=== PATIENT | female | born 1955 | race Caucasian/White ===

== ENCOUNTER 2024-03-07 17:27 | Emergency (ER) | payer MEDICARE ==
[2024-03-07] MEDS: Sodium Chloride 0.9% 1,000 ML IV ONE ×2 (18:51→20:34)
[2024-03-07 18:55] LABS: BASOPHILS ABSOLUTE AUTO 0.1 K/mm3 (0.0-0.2); BASOPHILS PERCENT AUTO 0.8 % (0.0-1.0); EOSINOPHILS ABSOLUTE AUTO 0.2 K/mm3 (0.0-0.4); HEMATOCRIT 46.1 % (37.0-47.0); HEMOGLOBIN 15.6 gm/dl (12.0-16.0); IMMATURE GRAN ABSOLUTE AUTO 0.01 K/mm3 (0.00-0.05); IMMATURE GRAN PERCENT AUTO 0.2 % (0.0-0.4); LYMPHOCYTES ABSOLUTE AUTO 2.9 K/mm3 (1.0-4.8); LYMPHOCYTES PERCENT AUTO 45.4 % (24.0-44.0); MEAN CORPUSCULAR HEMOGLOBIN 33.7 pg (28.0-32.0); MEAN CORPUSCULAR HGB CONC 33.8 g/dl (32.0-36.0); MEAN CORPUSCULAR VOLUME 99.6 fl (83.0-99.0); MEAN PLATELET VOLUME 10.4 fl (9.4-12.3); MONOCYTES ABSOLUTE AUTO 0.5 K/mm3 (0.0-0.8); MONOCYTES PERCENT AUTO 7.1 % (0.0-8.0); NEUTROPHILS ABSOLUTE AUTO 2.8 K/mm3 (1.8-7.7); NEUTROPHILS PERCENT AUTO 43.5 % (41.0-71.0); PLATELET COUNT,PLT 183 K/mm3 (150-400); RED BLOOD CELL COUNT 4.63 M/mm3 (4.10-5.30); WHITE BLOOD CELL COUNT,WBC 6.35 K/mm3 (3.9-11.3)
[2024-03-07 19:39] LABS: A/G RATIO 1.2 (1-2); ANION GAP 19.4 (5-15); BILIRUBIN TOTAL 0.5 mg/dL (0.2-1.0); BUN/CREATININE RATIO 21.3 (14-18); CALCIUM 8.8 mg/dL (8.5-10.1); CREATININE 0.8 mg/dL (0.55-1.02); EST CRCL DRUG DOSING (CG) 57.31 mL/min; ETHANOL BLOOD MEDICAL 0.25 gm% (0.00); MAGNESIUM 1.6 mg/dL (1.8-2.4); POTASSIUM,K 4.4 mEq/L (3.5-5.1); PROTEIN TOTAL,TP 7.3 g/dl (6.4-8.2)
[2024-03-07] MEDS: Magnesium Oxide 400 MG Tab PO ONE (20:34)
== END 2024-03-07 23:12 | disposition home or self-care (01) ==
LOC: JD.ED 17:27
DX: F10.920 Alcohol use, unspecified with intoxication, uncomplicated (principal)
CPT/HCPCS: 36415; 80053; 80307; 83735; 85025; 96360; 96361; 99284; A9270; J7030; 99282

== ENCOUNTER 2025-03-15 22:51 | Inpatient (IN) | payer MEDICAID ==
[2025-03-15 23:37] LABS: MEAN PLATELET VOLUME 10.5 fl (9.4-12.3); NRBC ABSOLUTE 0.00 (0.00-0.02); NRBC PERCENT 0.0 % (0.0-0.2); PLATELET COUNT,PLT 266 K/mm3 (150-400); RED BLOOD CELL COUNT 5.50 M/mm3 (4.10-5.30); WHITE BLOOD CELL COUNT,WBC 13.21 K/mm3 (3.9-11.3)
[2025-03-15 23:44] LABS: INR 1.04
[2025-03-15] MEDS: Ondansetron 4 MG/2 ML SDV IVPUSH ONE (23:48)
[2025-03-15] MEDS ORDERED: Sodium Chloride 0.9% 10 ML Syringe FLUSH PRN (23:53)
[2025-03-15 23:58] LABS: A/G RATIO 1.0 (1-2); ALANINE AMINOTRANSFERASE,ALT 22.0 U/L (14-59); ASPARTATE AMNIOTRANSFERASE,AST 19.0 U/L (15-37); BILIRUBIN TOTAL 0.9 mg/dL (0.2-1.0); BLOOD UREA NITROGEN,BUN 23.0 mg/dL (7-18); CARBON DIOXIDE,CO2 21.0 mEq/L (21-32); CHLORIDE,CL 100.0 mEq/L (98-107); CREATININE 1.3 mg/dL (0.55-1.02); EST CRCL DRUG DOSING (CG) 34.77 mL/min; ESTIMATED GFR 44.0 mL/min (>60); GLUCOSE RANDOM 183.0 mg/dL (70-99); POTASSIUM,K 4.3 mEq/L (3.5-5.1); PROTEIN TOTAL,TP 7.3 g/dl (6.4-8.2); SODIUM,NA 134.0 mEq/L (136-145); TROPONIN I HIGH SENSITIVITY 10.0 pg/mL (<=51)
[2025-03-16 00:03] LABS: LACTIC ACID 2.4 mmol/L (0.4-2.0)
[2025-03-16] MEDS: Iopamidol 755 Mg/ML 100 ML Bottle IVPUSH ONE (00:24)
[2025-03-16] MEDS: Sodium Chloride 0.9% 10 ML Syringe FLUSH PRN (00:24)
[2025-03-16 00:34] LABS: BAND PERCENT MAN 0 % (0-10); BASOPHILS PERCENT MAN 0 (0.1-1.2); EOSINOPHILS PERCENT MAN 1 % (0.7-5.8); LYMPHOCYTES % ATYPICAL MANUAL 2 %; LYMPHOCYTES PERCENT MAN 13 % (20-40); MONOCYTES PERCENT MAN 6 % (2-10); PLATELET COUNT ESTIMATE ADEQUATE
[2025-03-16 03:08] LABS: APPEARANCE,URINE CLEAR (Clear); GLUCOSE,URINE NEGATIVE (Negative); OCCULT BLOOD,URINE NEGATIVE (Negative)
[2025-03-16] MEDS ORDERED: Sennosides/Docusate Sodium 50-8.6 MG Tab PO PRN (04:18)
[2025-03-16] MEDS: Heparin Sodium 5,000 Units/ML Vial SUBCUT SCH (04:45)
[2025-03-16] MEDS: Lactated Ringers 1,000 ML IV SCH (04:46)
[2025-03-16] MEDS: Ondansetron 4 MG/2 ML SDV IVPUSH PRN (05:07)
[2025-03-16 08:21] LABS: A/G RATIO 1.1 (1-2); ALANINE AMINOTRANSFERASE,ALT 20.0 U/L (14-59); ASPARTATE AMNIOTRANSFERASE,AST 25.0 U/L (15-37); BILIRUBIN TOTAL 0.9 mg/dL (0.2-1.0); BLOOD UREA NITROGEN,BUN 17.0 mg/dL (7-18); CARBON DIOXIDE,CO2 24.0 mEq/L (21-32); CHLORIDE,CL 102.0 mEq/L (98-107); CREATININE 1.0 mg/dL (0.55-1.02); EST CRCL DRUG DOSING (CG) 45.2 mL/min; ESTIMATED GFR 61.0 mL/min (>60); GLUCOSE RANDOM 99.0 mg/dL (70-99); POTASSIUM,K 4.6 mEq/L (3.5-5.1); PROTEIN TOTAL,TP 6.8 g/dl (6.4-8.2); SODIUM,NA 135.0 mEq/L (136-145)
[2025-03-16 08:35] LABS: BASOPHILS ABSOLUTE AUTO 0.0 K/mm3 (0.0-0.2); BASOPHILS PERCENT AUTO 0.5 % (0.0-1.0); EOSINOPHILS ABSOLUTE AUTO 0.1 K/mm3 (0.0-0.4); EOSINOPHILS PERCENT AUTO 1.9 % (0.0-6.0); IMMATURE GRAN ABSOLUTE AUTO 0.02 K/mm3 (0.00-0.05); IMMATURE GRAN PERCENT AUTO 0.3 % (0.0-0.4); LYMPHOCYTES ABSOLUTE AUTO 2.1 K/mm3 (1.0-4.8); LYMPHOCYTES PERCENT AUTO 33.1 % (24.0-44.0); MEAN PLATELET VOLUME 10.2 fl (9.4-12.3); MONOCYTES ABSOLUTE AUTO 0.7 K/mm3 (0.0-0.8); MONOCYTES PERCENT AUTO 11.5 % (0.0-8.0); NEUTROPHILS ABSOLUTE AUTO 3.3 K/mm3 (1.8-7.7); NEUTROPHILS PERCENT AUTO 52.7 % (41.0-71.0); NRBC ABSOLUTE 0.00 (0.00-0.02); NRBC PERCENT 0.0 % (0.0-0.2); RED BLOOD CELL COUNT 4.42 M/mm3 (4.10-5.30); WHITE BLOOD CELL COUNT,WBC 6.28 K/mm3 (3.9-11.3)
[2025-03-16 08:38] LABS: PLATELET COUNT,PLT 186 K/mm3 (150-400)
[2025-03-17 07:22] LABS: BASOPHILS ABSOLUTE AUTO 0.0 K/mm3 (0.0-0.2); BASOPHILS PERCENT AUTO 1.1 % (0.0-1.0); EOSINOPHILS ABSOLUTE AUTO 0.2 K/mm3 (0.0-0.4); EOSINOPHILS PERCENT AUTO 6.7 % (0.0-6.0); IMMATURE GRAN ABSOLUTE AUTO 0.01 K/mm3 (0.00-0.05); IMMATURE GRAN PERCENT AUTO 0.4 % (0.0-0.4); LYMPHOCYTES ABSOLUTE AUTO 1.3 K/mm3 (1.0-4.8); LYMPHOCYTES PERCENT AUTO 43.9 % (24.0-44.0); MEAN PLATELET VOLUME 10.3 fl (9.4-12.3); MONOCYTES ABSOLUTE AUTO 0.3 K/mm3 (0.0-0.8); MONOCYTES PERCENT AUTO 11.2 % (0.0-8.0); NEUTROPHILS ABSOLUTE AUTO 1.1 K/mm3 (1.8-7.7); NEUTROPHILS PERCENT AUTO 36.7 % (41.0-71.0); NRBC ABSOLUTE 0.00 (0.00-0.02); NRBC PERCENT 0.0 % (0.0-0.2); PLATELET COUNT,PLT 157 K/mm3 (150-400); RED BLOOD CELL COUNT 3.98 M/mm3 (4.10-5.30); WHITE BLOOD CELL COUNT,WBC 2.85 K/mm3 (3.9-11.3)
[2025-03-17 07:44] LABS: A/G RATIO 1.1 (1-2); ALANINE AMINOTRANSFERASE,ALT 19.0 U/L (14-59); ASPARTATE AMNIOTRANSFERASE,AST 16.0 U/L (15-37); BILIRUBIN TOTAL 0.7 mg/dL (0.2-1.0); BLOOD UREA NITROGEN,BUN 10.0 mg/dL (7-18); CARBON DIOXIDE,CO2 26.0 mEq/L (21-32); CHLORIDE,CL 108.0 mEq/L (98-107); CREATININE 1.1 mg/dL (0.55-1.02); EST CRCL DRUG DOSING (CG) 41.09 mL/min; ESTIMATED GFR 54.0 mL/min (>60); GLUCOSE RANDOM 94.0 mg/dL (70-99); POTASSIUM,K 4.3 mEq/L (3.5-5.1); PROTEIN TOTAL,TP 5.8 g/dl (6.4-8.2); SODIUM,NA 142.0 mEq/L (136-145)
[2025-03-17] MEDS: Magnesium Sulfate 2 GM/50 mL 2 GM in Premix Bag 1 BAG IV ONE (08:12)
== END 2025-03-17 14:25 | disposition home or self-care (01) | DRG 872 ==
LOC: JD.ED 22:51 → JD.MS 03-16 02:58
PROVIDERS: ADMIT Family Medicine; ATTEND Family Medicine
DX: A41.9 Sepsis, unspecified organism (principal); E87.20 Acidosis, unspecified; K55.9 Vascular disorder of intestine, unspecified; R65.20 Severe sepsis without septic shock; K21.9 Gastro-esophageal reflux disease without esophagitis; I50.9 Heart failure, unspecified; I11.0 Hypertensive heart disease with heart failure; R10.84 Generalized abdominal pain; K80.20 Calculus of gallbladder without cholecystitis without obstruction; I48.91 Unspecified atrial fibrillation; E86.0 Dehydration; K27.7 Chronic peptic ulcer, site unspecified, without hemorrhage or perforation; F32.A Depression, unspecified; E66.9 Obesity, unspecified; Z68.34 Body mass index [BMI] 34.0-34.9, adult; Z90.49 Acquired absence of other specified parts of digestive tract; Z88.8 Allergy status to other drugs, medicaments and biological substances; Z79.899 Other long term (current) drug therapy; Z98.890 Other specified postprocedural states
CPT/HCPCS: 36415; 71275; 71275-26; 74175; 74175-26; 80053; 81003; 82272; 83605; 83690; 83735; 84100; 84484; 85007; 85025; 85027; 85610; 86140; 87040; 87045; 87046; 87328; 87329; 87899; 93010; 96361; 96365; 96366; 96372; 96375; 96376; 99222; 99239; 99285; 99285-25; A9270-GY; J1644; J2270; J2405; J2543; J3475; J7030; J7120; Q9967

== ENCOUNTER 2025-05-08 15:16 | Emergency (ER) | payer MEDICARE, MEDICAID ==
[2025-05-08 16:13] LABS: BASOPHILS ABSOLUTE AUTO 0.1 K/mm3 (0.0-0.2); BASOPHILS PERCENT AUTO 0.4 % (0.0-1.0); EOSINOPHILS ABSOLUTE AUTO 0.1 K/mm3 (0.0-0.4); EOSINOPHILS PERCENT AUTO 0.6 % (0.0-6.0); IMMATURE GRAN ABSOLUTE AUTO 0.08 K/mm3 (0.00-0.05); IMMATURE GRAN PERCENT AUTO 0.5 % (0.0-0.4); LYMPHOCYTES ABSOLUTE AUTO 3.7 K/mm3 (1.0-4.8); LYMPHOCYTES PERCENT AUTO 22.7 % (24.0-44.0); MEAN PLATELET VOLUME 11.2 fl (9.4-12.3); MONOCYTES ABSOLUTE AUTO 0.8 K/mm3 (0.0-0.8); MONOCYTES PERCENT AUTO 5.0 % (0.0-8.0); NEUTROPHILS ABSOLUTE AUTO 11.4 K/mm3 (1.8-7.7); NEUTROPHILS PERCENT AUTO 70.8 % (41.0-71.0); NRBC ABSOLUTE 0.00 (0.00-0.02); NRBC PERCENT 0.0 % (0.0-0.2); PLATELET COUNT,PLT 268 K/mm3 (150-400); RED BLOOD CELL COUNT 6.12 M/mm3 (4.10-5.30); WHITE BLOOD CELL COUNT,WBC 16.09 K/mm3 (3.9-11.3)
[2025-05-08] MEDS: Lactated Ringers 1,000 ML IV SCH (16:25)
[2025-05-08 16:34] LABS: A/G RATIO 1.2 (1-2); ALANINE AMINOTRANSFERASE,ALT 53.0 U/L (14-59); ASPARTATE AMNIOTRANSFERASE,AST 52.0 U/L (15-37); BILIRUBIN TOTAL 1.0 mg/dL (0.2-1.0); BLOOD UREA NITROGEN,BUN 34.0 mg/dL (7-18); CARBON DIOXIDE,CO2 15.0 mEq/L (21-32); CHLORIDE,CL 100.0 mEq/L (98-107); CREATININE 1.6 mg/dL (0.55-1.02); EST CRCL DRUG DOSING (CG) 30.19 mL/min; ESTIMATED GFR 34.0 mL/min (>60); GLUCOSE RANDOM 203.0 mg/dL (70-99); POTASSIUM,K 3.6 mEq/L (3.5-5.1); PROTEIN TOTAL,TP 7.6 g/dl (6.4-8.2); SODIUM,NA 135.0 mEq/L (136-145)
[2025-05-08 16:38] LABS: LACTIC ACID 3.7 mmol/L (0.4-2.0)
[2025-05-08 20:12] LABS: BASOPHILS ABSOLUTE AUTO 0.0 K/mm3 (0.0-0.2); BASOPHILS PERCENT AUTO 0.2 % (0.0-1.0); EOSINOPHILS ABSOLUTE AUTO 0.0 K/mm3 (0.0-0.4); EOSINOPHILS PERCENT AUTO 0.1 % (0.0-6.0); IMMATURE GRAN ABSOLUTE AUTO 0.03 K/mm3 (0.00-0.05); IMMATURE GRAN PERCENT AUTO 0.3 % (0.0-0.4); LYMPHOCYTES ABSOLUTE AUTO 1.3 K/mm3 (1.0-4.8); LYMPHOCYTES PERCENT AUTO 12.4 % (24.0-44.0); MEAN PLATELET VOLUME 10.9 fl (9.4-12.3); MONOCYTES ABSOLUTE AUTO 0.6 K/mm3 (0.0-0.8); MONOCYTES PERCENT AUTO 5.9 % (0.0-8.0); NEUTROPHILS ABSOLUTE AUTO 8.4 K/mm3 (1.8-7.7); NEUTROPHILS PERCENT AUTO 81.1 % (41.0-71.0); NRBC ABSOLUTE 0.00 (0.00-0.02); NRBC PERCENT 0.0 % (0.0-0.2); RED BLOOD CELL COUNT 4.83 M/mm3 (4.10-5.30); WHITE BLOOD CELL COUNT,WBC 10.30 K/mm3 (3.9-11.3)
[2025-05-08 20:13] LABS: PLATELET COUNT,PLT 153 K/mm3 (150-400)
[2025-05-08 20:28] LABS: A/G RATIO 1.0 (1-2); ALANINE AMINOTRANSFERASE,ALT 36.0 U/L (14-59); ASPARTATE AMNIOTRANSFERASE,AST 32.0 U/L (15-37); BILIRUBIN TOTAL 0.7 mg/dL (0.2-1.0); BLOOD UREA NITROGEN,BUN 31.0 mg/dL (7-18); CARBON DIOXIDE,CO2 22.0 mEq/L (21-32); CHLORIDE,CL 108.0 mEq/L (98-107); CREATININE 1.3 mg/dL (0.55-1.02); EST CRCL DRUG DOSING (CG) 37.16 mL/min; ESTIMATED GFR 44.0 mL/min (>60); GLUCOSE RANDOM 194.0 mg/dL (70-99); POTASSIUM,K 4.0 mEq/L (3.5-5.1); PROTEIN TOTAL,TP 5.3 g/dl (6.4-8.2); SODIUM,NA 137.0 mEq/L (136-145)
[2025-05-08] MEDS ORDERED: Lactated Ringers 1,000 ML IV SCH (22:00)
== END 2025-05-08 22:34 | disposition home or self-care (01) ==
LOC: JD.ED 15:16
DX: E86.0 Dehydration (principal); R10.12 Left upper quadrant pain; R11.2 Nausea with vomiting, unspecified; E87.20 Acidosis, unspecified; I11.0 Hypertensive heart disease with heart failure; I50.9 Heart failure, unspecified; K21.9 Gastro-esophageal reflux disease without esophagitis; I48.91 Unspecified atrial fibrillation; Z88.8 Allergy status to other drugs, medicaments and biological substances; Z79.899 Other long term (current) drug therapy
CPT/HCPCS: 36415; 74176; 80053; 80307; 83036; 83605; 83690; 83735; 83880; 84484; 85025; 86140; 96361; 96374; 96375; 96376; 99284; A9270; J1171; J2765; J7030; J7042; J7120